=== PATIENT | male | born 1975 | race Caucasian/White ===

== ENCOUNTER 2016-07-18 20:49 | Emergency (ER) | payer OTHER ==
[~2016-07-18] VITALS: Ht 172.7 cm; Wt 85.7 kg
--- NOTE | 2016-07-18 20:50 | NUR ---
pt triaged. no available beds. pt on ambulance gurney in hallway accompanied by supervisor audit clerks. aware.
[2016-07-18 20:52] VITALS: BP 109/71; PULSE 63; RESP 16; TEMP 98.4; O2SAT 99
--- NOTE | 2016-07-18 21:10 | NUR ---
Patient to ER bed 06 to gown for evaluation. Side rails up. Report given to olayinka.
--- NOTE | 2016-07-18 21:12 | NUR ---
pt in bed 7 with c/o possible sz activity. bib ALS , alert and oriented . no complaints offered at this time. Dr Jimenez aware.
[2016-07-18] MEDS ORDERED: LORazepam 2 MG/ML VIAL (FOR ER USE) IVP ONE (21:15)
[2016-07-18] MEDS ORDERED: NACL 0.9% 1,000 ML IV ONE (21:15)
[2016-07-18 21:20] LABS: BASOPHILS # (AUTO) 0.1 K/uL (0.0-0.2); BASOPHILS % (AUTO) 1.3 % (0.0-2.0); EOSINOPHILS # (AUTO) 0.1 K/uL (0.0-0.4); EOSINOPHILS % (AUTO) 1.2 % (0.0-4.0); HEMOGLOBIN 13.9 g/dL (14.0-18.0); LYMPHOCYTES # (AUTO) 4.3 K/uL (1.0-5.5); MEAN CORPUSCULAR HEMOGLOBIN 30 pg (27-31); MEAN CORPUSCULAR HGB CONC 35 % (32-36); MEAN CORPUSCULAR VOLUME 86 fL (79.0-98.0); MONOCYTES # (AUTO) 0.7 K/uL (0.0-1.0); MONOCYTES % (AUTO) 6.8 % (1.7-9.3); NEUTROPHILS # (AUTO) 4.9 K/uL (1.8-7.7); NEUTROPHILS % (AUTO) 47.7 % (40.0-70.0); PLATELET COUNT (AUTO) 240 K/uL (130-430); RED BLOOD CELL COUNT(AUTO) 4.63 MIL/uL (4.2-6.2); RED CELL DISTRIBUTION WIDTH 12.2 % (9.0-15.0); WHITE BLOOD COUNT (AUTO) 10.1 K/uL (4.8-10.8)
[2016-07-18 21:27] LABS: CALCIUM 8.5 mg/dL (8.4-11.0); CREATININE 0.98 mg/dL (0.55-1.30); POTASSIUM 3.2 mmol/L (3.5-5.1)
[2016-07-18 21:32] LABS: ALBUMIN 3.8 g/dL (3.4-4.8); TOTAL BILIRUBIN 0.4 mg/dL (0.0-1.0); TOTAL PROTEIN, SERUM 7.2 g/dL (6.4-8.3)
--- NOTE | 2016-07-18 21:36 | NUR ---
ER at bedside examining patient.
--- NOTE | 2016-07-18 21:55 | NUR ---
Patient transported to radiology via gurney, accompanied by gem technician.
--- NOTE | 2016-07-18 22:09 | NUR ---
Sophy bradford in [facility] - 07/18/16 at 2210 by RENETTAEDAVIVA Patient transported to radiology via [facility], accompanied by fish technologist.
--- NOTE | 2016-07-18 22:09 | NUR ---
Returned from radiology, back to [facility].
[2016-07-18 22:42] LABS: BARBITURATE, URINE NEGATIVE (NEG <=200); METHAMPHETAMINES SCREEN,URINE NEGATIVE (NEG <=500); URINE AMPHETAMINE NEGATIVE (NEG <=500)
[2016-07-18 22:43] LABS: BENZODIAZEPINE, URINE NEGATIVE (NEG <=150); CANNABINOID, URINE POSITIVE (NEG <=50); COCAINE, URINE NEGATIVE (NEG <=150); OPIATE, URINE NEGATIVE (NEG <=100); PHENCYCLIDINE SCREEN,URINE NEGATIVE (NEG <=25); UR TRICYCLIC ANTIDEPRESSANTS NEGATIVE (NEG <=300); URINE METHADONE NEGATIVE (NEG <=200); URINE OXYCODONE SCREEN NEGATIVE (NEG <=100); URINE PROPOXYPHENE SCREEN NEGATIVE (NEG <=300)
--- NOTE | 2016-07-18 22:45 | NUR ---
ER at bedside examining patient.
--- NOTE | 2016-07-18 23:55 | NUR ---
[facility] Report filed and faxed to [phone].
--- NOTE | 2016-07-18 23:56 | NUR ---
Patient given written and verbal discharge instructions and verbalizes understanding. ER MD discussed with patient the results and treatment provided. Given copies of tests performed in ER. Patient in stable condition. ID arm band removed. IV catheter removed intact and dressing applied, no active bleeding. No Rx given. Patient educated on pain management and to follow up with PMD. Pain Scale 0/10. Opportunity for questions provided and answered.
[2016-07-18 23:59] VITALS: BP 112/67; PULSE 78; RESP 16; TEMP 98.4; O2SAT 99
== END 2016-07-18 23:59 | disposition home or self-care (01) ==
LOC: SED 22:40
DX: R56.9 Unspecified convulsions (principal)
CPT/HCPCS: 36415; 70450; 71010; 80053; 80307; 85025; 93005; 96361; 96374; 99285; J2060; J7030

== ENCOUNTER 2017-05-01 12:38 | Emergency (ER) | payer OTHER ==
[~2017-05-01] VITALS: Ht 172.7 cm; Wt 81.6 kg
[2017-05-01 12:40] VITALS: BP_SYST 116
[2017-05-01 13:40] VITALS: BP_SYST 124
== END 2017-05-01 13:40 | disposition home or self-care (01) ==
LOC: SED 12:38
DX: J06.9 Acute upper respiratory infection, unspecified (principal); F17.200 Nicotine dependence, unspecified, uncomplicated; Z71.6 Tobacco abuse counseling
CPT/HCPCS: 99283

== ENCOUNTER 2023-06-25 18:59 | Emergency (ER) | payer SELFPAY ==
[~2023-06-25] VITALS: Ht 170.2 cm; Wt 79.4 kg
[2023-06-25 19:07] VITALS: BP_SYST 114; PULSE 57; RESP 18; TEMP 99; O2SAT 99
[2023-06-25 20:17] LABS: BASOPHILS # (AUTO) 0.1 K/uL (0.0-0.2); BASOPHILS % (AUTO) 0.7 % (0.0-2.0); EOSINOPHILS # (AUTO) 0.1 K/uL (0.0-0.4); EOSINOPHILS % (AUTO) 1.7 % (0.0-4.0); HEMATOCRIT 41.3 % (36-54); HEMOGLOBIN 14.2 g/dL (14.0-18.0); LYMPHOCYTES # (AUTO) 2.8 K/uL (1.0-5.5); LYMPHOCYTES % (AUTO) 35.8 % (20.5-51.5); MEAN CORPUSCULAR HEMOGLOBIN 31 pg (27-31); MEAN CORPUSCULAR HGB CONC 35 % (32-36); MEAN CORPUSCULAR VOLUME 90 fL (79.0-98.0); MONOCYTES # (AUTO) 0.7 K/uL (0.0-1.0); MONOCYTES % (AUTO) 8.7 % (1.7-9.3); NEUTROPHILS # (AUTO) 4.2 K/uL (1.8-7.7); NEUTROPHILS % (AUTO) 53.1 % (40.0-70.0); PLATELET COUNT (AUTO) 303 K/uL (130-430); RED BLOOD CELL COUNT(AUTO) 4.61 MIL/uL (4.2-6.2); WHITE BLOOD COUNT (AUTO) 7.9 K/uL (4.8-10.8)
[2023-06-25] MEDS ORDERED: MECL-225 PO (20:40)
[2023-06-25 20:49] LABS: ALBUMIN 3.7 g/dL (3.4-4.8); CALCIUM 8.3 mg/dL (8.4-11.0); CREATININE 0.81 mg/dL (0.55-1.30); POTASSIUM 3.7 mmol/L (3.5-5.1); TOTAL BILIRUBIN 0.7 mg/dL (0.0-1.0); TOTAL PROTEIN, SERUM 6.9 g/dL (6.4-8.3)
[2023-06-25 21:25] VITALS: BP_SYST 114; PULSE 57; RESP 16; TEMP 98; O2SAT 99
== END 2023-06-25 21:26 | disposition home or self-care (01) ==
LOC: SED 18:59
DX: R42 Dizziness and giddiness (principal); F14.90 Cocaine use, unspecified, uncomplicated; F12.90 Cannabis use, unspecified, uncomplicated; F15.90 Other stimulant use, unspecified, uncomplicated; Z79.899 Other long term (current) drug therapy
CPT/HCPCS: 36415; 80053; 85025; 93005; 99284